=== PATIENT | male | born 1980 | race Caucasian/White ===

== ENCOUNTER 2018-01-08 09:35 | Emergency (ER) | payer OTHER ==
[~2018-01-08] VITALS: Ht 170.2 cm; Wt 87.2 kg
[2018-01-08 12:05] VITALS: BP 140/90
== END 2018-01-08 12:05 | disposition home or self-care (01) ==
LOC: ED 09:35
DX: S61.211A Laceration without foreign body of left index finger without damage to nail, initial encounter (principal); W26.8XXA Contact with other sharp object(s), not elsewhere classified, initial encounter; Y93.89 Activity, other specified; Y92.89 Other specified places as the place of occurrence of the external cause; Y99.8 Other external cause status
CPT/HCPCS: J2001

== ENCOUNTER 2018-01-10 16:53 | Emergency (ER) | payer OTHER ==
[~2018-01-10] VITALS: Ht 170.2 cm; Wt 86.2 kg
[2018-01-10 17:07] VITALS: Ht 170.2 cm; Wt 86.2 kg
[2018-01-10 18:12] VITALS: BP 129/71
== END 2018-01-10 18:12 | disposition home or self-care (01) ==
LOC: ED 16:53
DX: S61.211D Laceration without foreign body of left index finger without damage to nail, subsequent encounter (principal); X58.XXXD Exposure to other specified factors, subsequent encounter

== ENCOUNTER 2018-01-24 11:54 | Emergency (ER) | payer OTHER ==
[~2018-01-24] VITALS: Ht 170.2 cm; Wt 86.6 kg
[2018-01-24 12:01] VITALS: BP 122/73; Ht 170.2 cm; Wt 86.6 kg
== END 2018-01-24 12:28 | disposition home or self-care (01) ==
LOC: ED 11:54
DX: S61.211D Laceration without foreign body of left index finger without damage to nail, subsequent encounter (principal); X58.XXXD Exposure to other specified factors, subsequent encounter